=== PATIENT | female | born 1965 | race Caucasian/White ===

== ENCOUNTER → 2016-09-01 | Outpatient (REF) | payer BC | LOC: M LAB REF 16:39 | PROVIDERS: ATTEND Internal Medicine | DX: E78.00 Pure hypercholesterolemia, unspecified (principal) ==

== ENCOUNTER → 2017-11-15 | Outpatient (REF) | payer BC ==
[2017-11-15 13:10] LABS: INFLUENZA A AMPLIFICATION POSITIVE (NEGATIVE); INFLUENZA B AMPLIFICATION NEGATIVE (NEGATIVE)
== END ==
LOC: M LAB REF 12:01
DX: R05 Cough (principal); R50.9 Fever, unspecified
CPT/HCPCS: 87502

== ENCOUNTER → 2018-07-28 | Outpatient (REF) | payer BC ==
[2018-07-29 08:09] LABS: LDL DIRECT 88 mg/dL (0-99)
== END ==
LOC: M LAB REF 11:54
PROVIDERS: ATTEND Internal Medicine
DX: E78.00 Pure hypercholesterolemia, unspecified (principal)

== ENCOUNTER → 2019-01-29 | Outpatient (REF) | payer BC ==
[2019-01-29 17:31] LABS: MALB URINE SIEMENS 17.5 MG/L; MAU/CREAT RATIO 8.8 MCG/MG (0.0-30.0)
== END ==
LOC: M LAB REF 16:27
PROVIDERS: ATTEND Internal Medicine
DX: I10 Essential (primary) hypertension (principal); E11.65 Type 2 diabetes mellitus with hyperglycemia

== ENCOUNTER → 2019-06-19 | Outpatient (CLI) | payer BC ==
[2019-06-19 11:42] LABS: BLOOD UREA NITROGEN 19 MG/DL (7-18); CALCIUM LEVEL 9.4 MG/DL (8.5-10.1); CARBON DIOXIDE LEVEL 29 MEQ/L (21-32); CHLORIDE LEVEL 104 MEQ/L (98-107); CREATININE FOR GFR 1.03 MG/DL (0.55-1.30); GLOMERULAR FILTRATION RATE 59.2 (>51); GLUCOSE, FASTING 233 MG/DL (70-100); POTASSIUM SERUM 4.9 MEQ/L (3.5-5.1); SODIUM LEVEL 137 MEQ/L (136-145); TROPONIN I < 0.02 NG/ML (< 0.10)
== END ==
LOC: M LAB 10:15
PROVIDERS: ATTEND Physician Assistant
DX: I25.10 Atherosclerotic heart disease of native coronary artery without angina pectoris (principal)

== ENCOUNTER → 2020-07-30 | Outpatient (REF) | payer BC ==
[2020-08-01 11:08] LABS: LDL DIRECT 109 mg/dL (0-99)
== END ==
LOC: M LAB REF 16:23
PROVIDERS: ATTEND Internal Medicine
DX: E78.00 Pure hypercholesterolemia, unspecified (principal)

== ENCOUNTER → 2021-02-06 | Outpatient (CLI) | payer BC ==
--- NOTE | 2021-02-06 16:22 | REP ---
INDICATION: RT STERNUM PAIN. COMPARISON: 06/01/2006 a portable exam TECHNIQUE: PA and lateral FINDINGS: Since the last examination the patient has undergone median sternotomy. The heart is not enlarged and lung trinidad are clear. The osseous structures are within normal limits. IMPRESSION: No acute cardiopulmonary disease <Electronically signed by John Franco > 02/06/21 [id number]
== END ==
LOC: M WUC 15:33
PROVIDERS: ATTEND Physician Assistant Medical
DX: R07.2 Precordial pain (principal)

== ENCOUNTER → 2023-09-09 | Outpatient (CLI) | payer BC | LOC: M WUC 11:48 | PROVIDERS: ATTEND Internal Medicine | DX: M19.072 Primary osteoarthritis, left ankle and foot (principal) ==

== ENCOUNTER → 2025-07-15 | Outpatient (CLI) | payer BC ==
[2025-07-15 16:52] LABS: PLATELET COUNT, AUTOMATED 267 10^3/uL (150-450)
[2025-07-15 17:15] LABS: INR 0.95
[2025-07-15 17:31] LABS: CALCIUM LEVEL 9.2 MG/DL (8.3-10.6); CARBON DIOXIDE LEVEL 30.0 MMOL/L (20-31); CHLORIDE LEVEL 103.0 MMOL/L (98-107); CREATININE FOR GFR 0.82 MG/DL (0.55-1.30); GLOMERULAR FILTRATION RATE 81.3 (>45); POTASSIUM SERUM 4.0 MMOL/L (3.5-5.1); SODIUM LEVEL 143.0 MMOL/L (136-145)
== END ==
LOC: M WUC 13:18
PROVIDERS: ATTEND Physician Assistant
DX: I70.90 Unspecified atherosclerosis (principal)